=== PATIENT | female | born 1965 | race Caucasian/White ===

== ENCOUNTER 2022-01-17 11:15 | Day surgery (SDC) | payer OTHER ==
[~2022-01-17] VITALS: Ht 160 cm; Wt 58.2 kg
--- NOTE | ~2022-01-17 | OR ---
[facility] [address] [place], [place] [address] Draft DATE OF OPERATION: 01/17/2022 SURGEON: Nae Null MD PREOPERATIVE DIAGNOSIS: Postmenopausal bleeding. POSTOPERATIVE DIAGNOSES: Postmenopausal bleeding, endometrial polyps. PROCEDURE: Hysteroscopy, resection of polyps. ANESTHESIA: General LMA. ESTIMATED BLOOD LOSS: Minimal. DRAINS: None. INDICATIONS AND FINDINGS: The patient is a 56-year-old female, who was on hormone replacement therapy, but has been having abnormal bleeding. Ultrasound was abnormal. She is now here for further evaluation. At the time of surgery, exam under anesthesia was normal. The uterus sounded to 9 cm. There is couple of small polyps at the fundus and around the left tubal orifice. DESCRIPTION OF PROCEDURE: The patient was prepped and draped in the dorsal lithotomy position. A weighted speculum was placed. The anterior lip of the cervix was visualized and grasped with a single-tooth tenaculum. The cavity sounded to 9 cm. The endocervical canal was then easily dilated to a #8 dilator. The MyoSure device was then placed. The cavity was evaluated, which was predominantly atrophic, but with a few small polyps. The MyoSure Lite was then introduced and the polyps were removed. Following this, the procedure was terminated. The instruments removed from the vagina. There was no evidence of any ongoing bleeding from the tenaculum site. All sponge and needle counts were correct. She tolerated procedure well and was taken to the recovery room in good condition. PATIENT NAME: TOM GARRIDO OPERATIVE REPORT DATE OF : 63 REPORT #: [id number] PHYSICIAN: NAE NULL MD PCP: Dianna WALKER MD REPORT IS CONFIDENTIAL AND NOT TO BE RELEASED WITHOUT AUTHORIZATION [address] [address] Draft MD DHIRAJ Wilson/ROSEL /[id number] cc: Jess Gonzalez NP Copies: JESS GONZALEZ NP ~ PATIENT NAME: TOM GARRIDO OPERATIVE REPORT DATE OF : 63 REPORT #: [id number] PHYSICIAN: NAE NULL MD PCP: Dianna WALKER MD REPORT IS CONFIDENTIAL AND NOT TO BE RELEASED WITHOUT AUTHORIZATION
[~2022-01-17 11:15] MED LIST: CYMBALTA30 MG PO; PROMETRIUM200 MG PO; VIVELLE-DOT1 EAC1 TD
--- NOTE | 2022-01-17 14:03 | NUR ---
01/17/22 1403 Sheets,Nemo 1354 PT ARRIVED TO PACU ON 6L VIA MASK, ORAL AIRWAY IN PLACE AND RESP EVEN AND UNLABORED. PT ASLEEP. VSS
--- NOTE | 2022-01-17 14:58 | NUR ---
pt was given toradol in o r. naproxyn ordered offered tylenol after calling dr patton. pt refuses tylenol.
--- NOTE | 2022-01-17 16:01 | NUR ---
AMB TO BR WELL. VOIDS 300MLS YELLOW URINE. DENIES PAIN 0/10. HAS DRANK 300 MLS WATER. SCAN RED DRAINAGE ON ALONDRA PAD WHEN TO BR.
--- NOTE | 2022-01-21 16:20 | PATH ---
[facility] [address] [place], [place] [address] Signed SPECIMEN(S): A ENDOMETRIAL POLYPS SPECIMEN SOURCE: A. ENDOMETRIAL POLYPS CLINICAL HISTORY: Postmenopausal bleeding. Hysteroscopy DC. FINAL PATHOLOGIC DIAGNOSIS: Endometrium, polyps, curettage: - Fragments with features of benign endometrial polyp(s). - Focal fragment with crowded glands, see Comment. - Myometrium with no histopathologic abnormality. - See comment. COMMENT: One of the fragments of endometrium demonstrates crowded glands with cytologic features different than those from the background glands within the fragment. It is difficult to determine if this is an endometrial polyp or background endometrium due to small size of the tissue fragment. This focus is slightly less than 1 mm in greatest dimension, which does not meet the diagnostic criteria for endometrioid intraepithelial neoplasia (EIN). Clinical correlation and repeat sampling in six months is recommended. This case was reviewed by another member of our pathology staff who agrees with the diagnosis (NENA). NAL:cml:C2NR MICROSCOPIC EXAMINATION: Histologic sections of all submitted blocks are examined by light microscopy. These findings, together with the gross examination, support the pathologic diagnosis. GROSS DESCRIPTION: The specimen, labeled "AUBREY, A," and designated on the requisition "endometrial polyps," is received in formalin and consists of multiple fragments of pink-nichols soft tissue (1.5 x 1.0 x 0.3 cm in aggregate). The specimen is submitted entirely in cassette (A1). AC (under the direct supervision of a pathologist) The Gross Description was prepared using a voice recognition system. The report was reviewed for accuracy; however, sound-alike word errors, addition and/or PATIENT NAME: TOM GARRIDO PATHOLOGY DATE OF : 63 REPORT #: [id number] PHYSICIAN: HELENA DALY PCP: Dianna WALKER MD REPORT IS CONFIDENTIAL AND NOT TO BE RELEASED WITHOUT AUTHORIZATION [facility] [address] [place] [address] Signed deletions may occur. If there is any question about this report, please contact Client Services. PERFORMING LABORATORY: The technical component [place] [address] (CLIA# [id number]). Professional interpretation was performed by [employer] [facility], [address] [address] (CLIA# [id number]). Diagnostician: Jennifer Tanner MD Pathologist Electronically Signed 01/21/2022 Copies: ~ PATIENT NAME: TOM GARRIDO PATHOLOGY DATE OF : 63 REPORT #: [id number] PHYSICIAN: HELENA DALY PCP: Dianna WALKER MD REPORT IS CONFIDENTIAL AND NOT TO BE RELEASED WITHOUT AUTHORIZATION
== END 2022-01-17 15:45 | disposition home or self-care (01) ==
LOC: DS 11:15
PROVIDERS: ATTEND Obstetrics & Gynecology
PROC: 0UB98ZX Excision of Uterus, Via Natural or Artificial Opening Endoscopic, Diagnostic (ICD-10-PCS; principal; 2022-01-17 13:00)
DX: N84.0 Polyp of corpus uteri (principal); Z88.1 Allergy status to other antibiotic agents; Z88.5 Allergy status to narcotic agent
CPT/HCPCS: J1100; J1885; J2001; J2405; J2704; J3010; J7121

== ENCOUNTER 2022-08-20 07:00 | Day surgery (SDC) | payer OTHER ==
[~2022-08-20] VITALS: Ht 160 cm; Wt 60.0 kg
[~2022-08-20 07:00] MED LIST changes: +FEM-CAL CITRAT1 EACH PO; +FISH OIL + D31 EACH PO; +MAG DELAY64 M1 PO
[2022-08-20] MEDS ORDERED: ALLEGRA ALLERG180 MG PO (07:20)
--- NOTE | 2022-08-20 12:11 | NUR ---
08/20/22 1211 Coco Casas 1201- PT TO PACU IN SUPINE POSITION. PT REACTIVE TO VERBAL AND TACTILE STIMULI. DOES NOT FOLLOW COMMANDS. ORAL AIRWAY LEFT IN PLACE. BREATHING EASY AND UNLABORED. SPO2 90% ON ROOM AIR. O2 APPLIED AT 6LPM VIA SIMPLE MASK. 1205- PT CONTINUES TO SLEEP WITH ORAL AIRWAY IN PLACE. BREATHING EASY AND UNLABORED. SPO2 >95% ON 6 L O2 VIA SIMPLE MASK. 1209-PT RESPONDS TO VERBAL AND TACTILE STIMULI, FOLLOWS COMMANDS. ORAL AIRWAY REMOVED. PT ENCOURAGED TO TAKE DEEP BREATHS. RETURN DEMONSTRATION OBSERVED. BREATHING EASY AND UNLABORED. SPO2 >95% O2 TITRATED DOWN TO ROOM AIR.
--- NOTE | 2022-08-20 13:41 | NUR ---
1320: PT ARRIVES BACK TO DS TREATMENT ROOM FROM PACU VIA STRETCHER. PT DROWSY ON ARRIVAL, EASILY AROUSES TO VERBAL STIMULATION. SPOUSE AT BEDSIDE ON ARRIVAL. PT HOB SLIGHTLY RAISED AND PT TOERATES ICE CHIPS AND ICED WATER. PT RATES PAIN 4/10 AND CRAMPING IN LOWER ABD. DC CRITERIA EXPLAINED. ZOE SIMS ON WARM, CALL LIGHT WITHIN REACH.
[2022-08-20] MEDS ORDERED: DILAUDID2 MG PO (14:02)
[2022-08-20] MEDS ORDERED: ONDANSETRON ODT8 MG PO (14:03)
[2022-08-20] MEDS ORDERED: IBUPROFEN800 MG PO (14:03)
--- NOTE | 2022-08-20 14:58 | NUR ---
1415: PT RESTING IN BED AWAKE WITH SPOUSE AT BEDSIDE, VSS. TOLERATES WATER AND PUDDING WITH NO NAUSEA. 1435: PT SAT UP AT SIDE OF BED WITH RN ASSIST. PT STATES SOME DIZZINESS AND IS PROVIDED GLASSES PER REQUEST, DENIES NAUSEA. GARCIA CATHETER EMPTIED OF 650 MLS FLUORESCENT YELLOW URINE. 9 MLS CLEAR FLUID ASPIRATED FROM GARCIA BALLOON AND CATHETER IS REMOVED, PT TOLERATES WELL AND STATES "THAT IS MUCH MORE COMFORTABLE." ICED WATER REFILLED AND PROVIDED JELLO. PT ADVISED TO USE CALL LIGHT WITH ANY NEEDS.
--- NOTE | 2022-08-20 15:53 | NUR ---
1530: PT RESTING IN BED AWAKE ON PERSONAL CELL PHONE WITH SPOUSE AT BEDSIDE. PT STATES INCREASED CRAMPING AND RATES PAIN 6/10; SEE EMAR FOR PAIN RX. WILL USE CALL LIGHT WITH URGE TO VOID.
--- NOTE | 2022-08-20 17:04 | NUR ---
[id number]: PT USES CALL LIGHT TO NOTIFY RN OF URGE TO VOID. PT UP TO BATHROOM WITH RN ASSIST, STEADY GAIT. PT ABLE TO VOID 100 MLS LIGHT PINK URINE WITH NO CLOTS PRESENT. ALONDRA PAD CDI, PT DONS MESH BRIEFS. PT WOULD LIKE TO GET DRESSED AND DC HOME AT THIS TIME, ALL CRITERIA MET. ENC TO OPEN CURTAIN WHEN FINISHED. 1618: DC INSTRUCTIONS PRESENTED TO PT AND SPOUSE AT BEDSIDE BOTH VERBALLY AND WRITTEN. PT VERBALIZES AN UNDERSTANDING AND RX SCRIPT PREVIOUSLY GIVEN TO SPOUSE PRIOR TO SURGERY BY DR. ERWIN. PT DC FROM DS TREATMENT ROOM VIA TO PERSONAL VEHICLE DRIVEN BY SPOUSE TO HOME.
--- NOTE | 2022-08-26 12:33 | OR ---
[facility] [address] [place], [place] [address] Signed DATE OF OPERATION: 08/20/2022 SURGEON: Nae Null MD DIRECTOR OF AVIATION: BRENT Aaron DO PREOPERATIVE DIAGNOSIS: Complex endometrial hyperplasia without atypia. POSTOPERATIVE DIAGNOSIS: Complex endometrial hyperplasia without atypia, pending pathology plus pelvic adhesions. PROCEDURES: Total laparoscopic hysterectomy, bilateral salpingo-oophorectomy, right ureterolysis, cystoscopy. ANESTHESIA: General ET. ESTIMATED BLOOD LOSS: 50 mL. DRAINS: Cassidy catheter. INDICATIONS AND FINDINGS: The patient is a 56-year-old female who had abnormal bleeding and was found to have a small focus of complex endometrial hyperplasia on her hysteroscopy specimen. The patient has not tolerated EMB's in the past. She was placed on hormone treatment, but rather than undergo another biopsy she elected to undergo hysterectomy with removal of her ovaries. At the time of surgery, her pelvis was normal other than there was some scarring of the right ovary down into the right posterior broad ligament area. This overlied the ureter quite closely. PROCEDURE IN DETAIL: The patient was prepped and draped in the dorsal lithotomy position. A weighted speculum was placed. The anterior lip of the cervix was visualized and grasped with a single-tooth tenaculum. The uterine cavity was sounded to 9 cm. The endocervical canal was then dilated and a VCare cannula was placed and the balloon inflated at the fundus. Electronically Signed By: NAE NULL MD 08/26/22 1233 PATIENT NAME: TOM GARRIDO OPERATIVE REPORT DATE OF : 63 REPORT #: [id number] PHYSICIAN: NAE NULL MD PCP: Dianna WALKER MD REPORT IS CONFIDENTIAL AND NOT TO BE RELEASED WITHOUT AUTHORIZATION [facility] [address] [place], [place] [address] Signed The tenaculum and speculum were removed. The cup was fitted over the cervix and a locking cap fitted into place. Attention was then directed above. The infraumbilical area was injected with the Marcaine incision made with a knife, and each layer serially elevated and incised until the fascia was opened and identified. Stay sutures of 0 Vicryl were placed. Peritoneum was opened bluntly. The Cooper was then placed and tied into place with the balloon inflated. Placement of the scope confirmed proper positioning. CO2 was then introduced in the abdomen under low pressures. The pelvis was evaluated, and was felt that the planned procedure was appropriate. The secondary ports were then placed. These were placed far laterally both on the left and the right slightly below the level of the umbilicus. Each of these areas were transilluminated, injected with the Marcaine, incision made with a knife and the trocars placed under direct vision. The left port was a 5 mm port, the right was a Veress needle followed by the expanding port. Following this, the patient's left infundibulopelvic ligament was identified. The ureter was also seen on that side. The IP was serially coagulated and divided using the LigaSure [place] device. A 0 PDS Endoloop was placed, assuring hemostasis. The broad ligament was serially coagulated and divided down to the round ligament. This was coagulated and divided as well. The anterior leaf of the peritoneum was then incised allowing for creation of a partial bladder flap. The peritoneum was taken down posteriorly as well. The uterine vessels were skeletonized and were coagulated multiple times and divided. Attention was then directed to the patient's right side. Because of the scarring it was determined that this would be removed following the hysterectomy. The patient's right utero-ovarian pedicle and round ligament were serially coagulated and divided. The anterior leaf of the peritoneum was then incised completing the bladder flap. The peritoneum was taken down posteriorly as well. Uterine vessels were skeletonized and coagulated multiple times and divided. Further dissection was done allowing for the cup to be seen and felt. Following this, the specimen was removed by using the Sonicision. It was begun posteriorly at the patient's right uterosacral ligament coming around on the left side anteriorly and again posteriorly and wrapped around the right completing the excision. The specimen was retrieved vaginally. The vaginal canal was then packed with a glove with a wet lap allowing the pneumoperitoneum to reaccumulate. Attention was directed above and the abdomen copiously irrigated and inspected. The cuff itself appeared to be hemostatic. The decision was made to close the cuff before turning attention to the patient's right side. The 0 PDS Stratafix was then used, taking care to incorporate both the vaginal mucosa anteriorly and posteriorly. It was begun at the patient's right uterosacral ligament and run to the patient's left uterosacral ligament and back to the center. Following this, the attention was directed to the patient's right ovary and tube. The retroperitoneal space was developed by incising above the ovary on the pelvic sidewall. Blunt dissection as well as hydrodissection was used to separate the ovary and the peritoneum from the sidewall. The ureter could be seen and it was quite close to the ovary, but below it. The infundibulopelvic ligament could be isolated and it was coagulated and divided, taking care to completely avoid the ureter. Following this, a 0 Electronically Signed By: NAE NULL MD 08/26/22 1233 PATIENT NAME: TOM GARRIDO OPERATIVE REPORT DATE OF : 63 REPORT #: [id number] PHYSICIAN: NAE NULL MD PCP: Dianna WALKER MD REPORT IS CONFIDENTIAL AND NOT TO BE RELEASED WITHOUT AUTHORIZATION [facility] [address] [place], [place] [address] Signed PDS Endoloop was placed on the infundibulopelvic ligament to assure hemostasis. The ovary was then removed from the sidewall, mostly with blunt dissection. It did not appear there was any significant ovary remaining on this side. There was a quite extensive dissection obviously because of this. There was no evidence of any active bleeding, but because of the raw area, it was felt beneficial to use Tisseel to assure hemostasis. Tisseel was then sprayed over the surgical sites primarily in the right retroperitoneal area. Following this, the instruments removed after allowing as much CO2 as possible to escape. The fascial incision was re-identified and closed with a running suture of 0 Vicryl. The skin incisions were closed with subcuticular sutures of 3-0 Vicryl Rapide. Attention was directed down below and the vaginal pack removed. The Cassidy catheter was removed and a 30 degree scope was used to evaluate the bladder. She had received IV fluorescein. On inspection of the bladder, there was no evidence of any injury. The ureteral orifices were easily identified and free spill of fluorescein stained urine was noted bilaterally. Following this, the bladder was drained and the Cassidy catheter replaced. She was taken to the recovery room in good condition. All sponge and needle counts were correct. Nae Null MD PJW/MODL /[id number] cc: Dr. KENNEDY [place] Copies: ~ Electronically Signed By: NAE NULL MD 08/26/22 1233 PATIENT NAME: TOM GARRIDO JACKIE OPERATIVE REPORT DATE OF : 63 REPORT #: [id number] PHYSICIAN: NAE NULL MD PCP: Dianna WALKER MD REPORT IS CONFIDENTIAL AND NOT TO BE RELEASED WITHOUT AUTHORIZATION
--- NOTE | 2022-08-26 13:01 | PATH ---
[facility] [address] [place], [place] [address] Signed SPECIMEN(S): A UTERUS, CERVIX, TUBES AND OVARIES SPECIMEN SOURCE: A. UTERUS, CERVIX, TUBES AND OVARIES CLINICAL HISTORY: Complex endometrial hyperplasia without atypia FINAL PATHOLOGIC DIAGNOSIS: Uterus, cervix, tubes and ovaries: - Atrophic and focally proliferative endometrium, negative for hyperplasia or atypia. - Endometrial adenomyosis. - Benign endocervix and ectocervix. - Benign bilateral ovaries and oviducts. JVR:justine:C2NR MICROSCOPIC EXAMINATION: Histologic sections of all submitted blocks are examined by light microscopy. These findings, together with the gross examination, support the pathologic diagnosis. GROSS DESCRIPTION: The specimen, labeled "KJ," and designated on the requisition "cervix, uterus, bilateral tubes + ovaries," is received in formalin and consists of a uterus with attached left adnexa and a detached fimbriated fallopian tube segment. A right ovary is not grossly identified. The detached fimbriated fallopian tube segment is nichols-white to purple, slightly ragged, 7.6 cm long, 0.7 cm in diameter, grossly unremarkable, and has a patent lumen. The left adnexa weighs 3.0 g and is comprised of an intact ovary and intact fimbriated fallopian tube segment. The fallopian tube is nichols-white to purple, 4.7 cm long, 0.7 cm in diameter, has a patent lumen, and is grossly remarkable. The ovary is smooth, yellow, 1.6 x 0.9 x 0.7 cm, and the ovarian stroma is grossly unremarkable. The uterus 57.1 g and measures 7.5 x 4.6 x 3.7 cm. The uterine serosa is nichols, smooth, and glistening. The ectocervical tissue is nichols-white to amado, smooth to finely wrinkled, and occupies a 3.2 x 3.0 cm area. The external os is oval, patent, 0.8 cm in diameter. The internal os is patent and the cervical stroma is grossly unremarkable. The triangle PATIENT NAME: TOM GARRIDO PATHOLOGY DATE OF : 63 REPORT #: [id number] PHYSICIAN: HELENA DALY PCP: Dianna WALKER MD REPORT IS CONFIDENTIAL AND NOT TO BE RELEASED WITHOUT AUTHORIZATION [facility] [address] [place], [place] [address] Signed endometrial cavity measures 3.7 x 2.1cm. The nichols endometrium is ill-defined, up to 0.2 cm thick, and without a discrete mass/lesion. The nichols, rubbery myometrium is up to 1.4 cm thick and without a discrete mass/lesion. [employer] sections are submitted as follows: A1-A3 detached fallopian tube entirely submitted sequentially from distal to proximal A4 right lateral uterus attached connective tissue, entirely A5-A6 left adnexa including fimbria entirely A7 anterior cervix A8 posterior cervix A9-A15 entire anterior endomyometrium A16-A24 entire posterior endomyometrium AI (under the direct supervision of a pathologist) The Gross Description was prepared using a voice recognition system. The report was reviewed for accuracy; however, sound-alike word errors, addition and/or deletions may occur. If there is any question about this report, please contact Client Services. PERFORMING LABORATORY: The technical component was performed by [employer], [address] [place] [address] (CLIA# [id number]). Professional interpretation was performed by [facility], [address] [place] [address], [place] [address] (CLIA#: [id number]). Diagnostician: Jerald Pittman MD Pathologist Electronically Signed 08/26/2022 Copies: ~ PATIENT NAME: TOM GARRIDO JACKIE PATHOLOGY DATE OF : 63 REPORT #: [id number] PHYSICIAN: HELENA PATHOLOGY PCP: Dianna WALKER MD REPORT IS CONFIDENTIAL AND NOT TO BE RELEASED WITHOUT AUTHORIZATION
== END 2022-08-20 16:30 | disposition home or self-care (01) ==
LOC: DS 07:00
PROVIDERS: ATTEND Obstetrics & Gynecology
PROC: 0UT74ZZ Resection of Bilateral Fallopian Tubes, Percutaneous Endoscopic Approach (ICD-10-PCS; 2022-08-20)
PROC: 0UT94ZZ Resection of Uterus, Percutaneous Endoscopic Approach (ICD-10-PCS; principal; 2022-08-20 10:45)
PROC: 0UT24ZZ Resection of Bilateral Ovaries, Percutaneous Endoscopic Approach (ICD-10-PCS; 2022-08-20 10:45)
DX: N80.03 Adenomyosis of the uterus (principal); N73.6 Female pelvic peritoneal adhesions (postinfective)
CPT/HCPCS: 00840; J0131; J0690; J1100; J1170; J1644; J1885; J2001; J2250; J2370; J2405; J2704; J2765; J3010; J7121